=== PATIENT | female | born 1970 | race African-American/Black ===

== ENCOUNTER 2016-05-09 19:32 | Emergency (ER) | payer OTHER ==
[~2016-05-09] VITALS: Ht 165.1 cm; Wt 90.7 kg
[~2016-05-09 19:32] MED LIST: GENTAMICIN SU3 MG/ML OPHTHALMIC; GUAIFENESIN WI120 ML PO; IBUPROFEN 800800 MG PO; LORTABELXR PO; NOHOMEMEDICATIONS; NORCO 7.5-3251 EACH PO; ZPAK PO
[2016-05-09] MEDS ORDERED: TRAMADOL 50 MG50 MG PO (21:35)
[2016-05-09] MEDS ORDERED: NORFLEX100 MG PO (21:35)
[2016-05-09] MEDS ORDERED: IBUPROFEN 600600 M1 PO (21:35)
[2016-05-09 22:01] VITALS: BP 110/69
== END 2016-05-09 22:02 | disposition home or self-care (01) ==
LOC: ER 19:32
DX: S16.1XXA Strain of muscle, fascia and tendon at neck level, initial encounter (principal); V89.2XXA Person injured in unspecified motor-vehicle accident, traffic, initial encounter; Y93.89 Activity, other specified; Y92.89 Other specified places as the place of occurrence of the external cause; Y99.8 Other external cause status